=== PATIENT | male | born 1965 | race Two or more races ===

== ENCOUNTER 2020-01-25 14:58 | Emergency (ER) | payer MEDICAID, SELFPAY ==
--- NOTE | 2020-01-25 | XR_ITS ---
EXAMINATION: XR SHOULDER, LEFT CLINICAL INFORMATION: Fall, trauma, pain COMPARISON: Left shoulder 07/18/2014 TECHNIQUE: Left shoulder is imaged in 3 views. FINDINGS: There is no fracture or dislocation. The acromioclavicular alignment is normal. There are no visible rotator cuff calcifications. Small focal cortical irregularity mid superior clavicle is stable from prior left shoulder radiographs 2014. IMPRESSION: No fracture or dislocation.
[2020-01-25 16:36] VITALS: BP 137/77; PULSE 79; RESP 16; TEMP 37.1; O2SAT 97; BMI 15.6
--- NOTE | 2020-01-25 17:38 | ED.EXTPRO ---
HPI - Extremity Problem General Chief complaint: Extremity Injury, Upper Stated complaint: SHOULDER PAIN Time Seen by Provider: 01/25/20 17:02 Source: patient Mode of arrival: ambulatory Limitations: no limitations History of Present Illness HPI Narrative: Patient reports he was walking his dog when he was going up the stairs he tripped and fell and to avoid stepping on his dog he landed on his left shoulder since then he is having pain to his left shoulder radiating to his left elbow Complaint: extremity pain Onset (ago): day(s) (1) Pain Consistency: constant Location: left and upper extremity (shoulder) Severity scale (1-10): 10 Quality: aching Radiation: distal Relieving factors: nothing Exacerbating factors: range of motion and palpation Associated symptoms: denies other symptoms Related Data Previous Rx's Medication Instructions Recorded ibuprofen 800 mg PO Q8H PRN #14 tab 01/25/20 oxycodone-acetaminophen [Percocet] 1 tab PO Q6H PRN #14 tab 01/25/20 Allergies Allergy/AdvReac Type Severity Reaction Status Date / Time aspirin [ASA] Allergy Hives Verified 01/25/20 16:44 Review of Systems Review of Systems: Yes all other systems are reviewed and are negative Constitutional: Constitutional: Reports as per HPI Eyes: Eyes: Reports as per HPI ENT: Reports as per HPI Cardiovascular: Cardiovascular: Reports as per HPI, Denies cool extremities, Denies painful fingertips, Denies chest pain, Denies edema, Denies lightheadedness, Denies radiating jaw, neck or arm pain, Denies palpitations and Denies dyspnea Respiratory: Respiratory: Reports as per HPI and Denies dyspnea Gastrointestinal: Gastrointestinal: Reports as per HPI Genitourinary: Genitourinary: Reports as per HPI Musculoskeletal: Musculoskeletal: Reports as per HPI, Denies back pain, Denies atrophy, Denies deformity, Denies joint swelling, Reports limited range of motion (to left shoulder due to pain ), Denies loss of height, Denies muscle weakness, Denies numbness, Denies radiating pain into limb, Denies stiffness and Denies tingling Integumentary/Breasts: Skin/Breast: Reports as per HPI Neurologic: Reports as per HPI, Denies numbness and Denies tingling Psychiatric: Psychiatric: Reports as per HPI Endocrine: Endocrine: Reports as per HPI and Denies palpitations Allergic/Immunologic: Allergic/Immunologic: Reports as per HPI [facility] Past Medical History Medical History Asthma Diverticulitis Social History Social History Smoking Status: Current every day smoker Use of substances other than those prescribed or required for medical reasons: No Advance Directives: No Advance Directives Information Provided: No Physical Exam Vital Signs and I&O and Narrative: Vital Signs and I&O: Vital Signs Temp 98.7 F 01/25/20 16:36 Pulse 79 01/25/20 16:36 Resp 16 01/25/20 16:36 BP 137/77 01/25/20 16:36 Pulse Ox 97 01/25/20 16:36 Intake & Output 01/24/20 01/25/20 01/25/20 18:59 06:59 18:59 Weight 49.442 kg Body Mass Index 15.6 Const: General: cooperative, healthy appearing, comfortable, no acute distress, well developed, alert, awake and Physically active Nutritional Appearance: average body habitus Orientation/consciousness: patient oriented x3 Limitations: no limitations HENMT: Head: Yes normal to inspection, Yes No palpable skull fracture present, Yes normocephalic and Yes atraumatic Ears: hearing grossly normal bilaterally General nose exam: Normal external nose present Face and sinus: Yes normal facial exam Mouth: Normal oral and palatal mucosa present and moist mucous membranes Eyes: General: appearance normal, both eyes and all related structures Visual Lane: normal visual lane by confrontation Alignment and Position: alignment normal Periorbital: periorbital findings normal Eyelids: Yes eyelids normal Pupils: Equal, round and reactive pupils present EOM: EOMs intact bilaterally Neck: Neck: Yes normal visual inspection, Yes full ROM, Yes no lymphadenopathy, Yes no meningeal signs, Yes trachea midline and Yes supple Chest: Chest palpation & inspection: normal inspection of the chest Resp: Effort & Inspection: normal respiratory effort and able to speak in complete sentences Auscultation: clear to auscultation bilaterally Cardio: Rate: regular rate Rhythm: regular rhythm Heart sounds: S1 normal heart sound present and S2 normal heart sound present Peripheral pulses: Peripheral pulses 2+ throughout Back/Spine/Pelvis: Cervical Spine: cervical ROM normal Thoracic/Lumbar Spine: thoraco-lumbar ROM normal Skin: General skin exam: no rashes or lesions noted, elasticity normal, turgor normal, no ecchymosis and no excoriation(s) Lesions: no lesions Rashes: no rashes Trauma: no lacerations or abrasions Wounds: no wounds Neuro: General: patient oriented x3, gait normal, moves all extremities, no meningeal signs, no focal motor deficits and CN's II-XI intact bilaterally Cranial nerves: Yes Equal, round and reactive pupils present Extrem: General: Yes normal to inspection Right upper extremity: normal to inspection and full ROM Left upper extremity: shoulder/upper arm Details: inspection abnormal, tenderness, axillary nerve sensory function normal and abnormal ROM Details: held in an abnormal fashion Details: in flexion and in internal rotation, pain with active ROM Details: in ADduction, in ABduction, in extension, in flexion, in internal rotation and external rotation- and pain with passive ROM Details: in ADduction, in ABduction, in extension, in flexion, in internal rotation and external rotation- Right lower extremity: normal to inspection and full ROM Left lower extremity: normal to inspection and full ROM Psych: Appearance: grossly normal Mental Status: mental status grossly normal Speech and movement: Normal speech and movement present Affect: normal affect Attitude: cooperative MDM - Extremity (Nontraumatic) Imaging Data left shoulder xray: Attestation: I personally reviewed and interpreted this imaging study as follows: Radiologist's impression: [address] [address] XRay Report Signed Patient: Hernan Cote#: [id number] : 1965Acct:[id number] Age/Sex: 54 / MADM Date: 01/25/20 Loc: HO.ED Attending Dr: Ordering Physician: Generic ED Physician Date of Service: 01/25/20 Procedure(s): XR shoulder LT min 2V Accession Number(s): [id number] cc: ~ EXAMINATION: XR SHOULDER, LEFT CLINICAL INFORMATION: Fall, trauma, pain COMPARISON: Left shoulder 07/18/2014 TECHNIQUE: Left shoulder is imaged in 3 views. FINDINGS: There is no fracture or dislocation. The acromioclavicular alignment is normal. There are no visible rotator cuff calcifications. Small focal cortical irregularity mid superior clavicle is stable from prior left shoulder radiographs 2014. IMPRESSION: No fracture or dislocation. Discharge Plan Discharge Clinical Impression: Fall (on) (from) other stairs and steps, initial encounter Sprain of left shoulder Qualifiers: Encounter type: initial encounter Shoulder sprain type: coracohumeral ligament Qualified Code(s): S43.412A - Sprain of left coracohumeral (ligament), initial encounter Patient Disposition: Home, Self-Care Instructions: Shoulder Sprain (ED), Shoulder Immobilizer (ED) Prescriptions: New oxycodone-acetaminophen [Percocet] 5-325 mg tablet 1 tab PO Q6H PRN (Reason: pain) Qty: 14 RF: 0 ibuprofen 800 mg tablet 800 mg PO Q8H PRN (Reason: pain) Qty: 14 RF: 0 Referrals: Yany Fitzgerald MD [Physician] - 2 weeks Stand Alone Forms: Work/School Release
== END 2020-01-25 18:30 | disposition home or self-care (01) ==
PROVIDERS: Emergency Provider Emergency Medicine
DX: S43.412A Sprain of left coracohumeral (ligament), initial encounter (principal); W10.8XXA Fall (on) (from) other stairs and steps, initial encounter; Y93.9 Activity, unspecified; Y92.019 Unspecified place in single-family (private) house as the place of occurrence of the external cause; Y99.9 Unspecified external cause status
CPT/HCPCS: 73030; 99283; 99284

== ENCOUNTER 2020-03-03 12:55 | Emergency (ER) | payer MEDICAID, SELFPAY ==
[2020-03-03 13:19] VITALS: PULSE 92; RESP 17; TEMP 37; O2SAT 95; BMI 27.2
--- NOTE | 2020-03-03 13:33 | ED.EXTPRO ---
HPI - Extremity Problem General Chief complaint: Extremity Injury, Upper Stated complaint: R ARM PAIN Time Seen by Provider: 03/03/20 13:31 Source: patient Mode of arrival: ambulatory History of Present Illness HPI Narrative: 54-year-old male with a past medical history of asthma, diverticulitis complaining of acute on chronic left shoulder pain S/P injury about a month ago. Reports caught himself while falling down stairs 1 month ago and arm was hyperextended, was seen in the ED afterwards, x-rays were normal, reports continued pain, worse with movement and at night. Reports associated tingling in LUE. Denies new or more recent injury, fever MD Complaint: extremity pain Related Data Previous Rx's Medication Instructions Recorded ibuprofen 800 mg PO Q8H PRN #14 tab 01/25/20 oxycodone-acetaminophen [Percocet] 1 tab PO Q6H PRN #14 tab 01/25/20 oxycodone-acetaminophen [Percocet] 1 tab PO Q6H PRN #14 tab 01/25/20 Allergies Allergy/AdvReac Type Severity Reaction Status Date / Time aspirin [ASA] Allergy Hives Verified 01/25/20 16:44 Review of Systems Review of Systems: Constitutional: No Weight loss, No Fever, No Chills Musculoskeletal:+joint pain, No Myalgias, No Joint Swelling Skin: No Skin Lesions, No rash Neuro: No Weakness,+tingling, No Paresthesias Yes all other systems are reviewed and are negative PMFSH Past Medical History Attestation statement: The following information was validated with the patient. Medical History Asthma Diverticulitis Social History Social History Smoking Status: Current every day smoker Advance Directives: No Advance Directives Information Provided: Yes Physical Exam Vital Signs: Vital Signs: Last Vital Signs Temp 98.6 F 03/03/20 13:19 Pulse 92 03/03/20 13:19 Resp 17 03/03/20 13:19 Pulse Ox 95 03/03/20 13:19 Body Mass Index 27.2 Const: General: cooperative and healthy appearing Orientation/consciousness: patient oriented x3 Limitations: no limitations HENMT: Head: Yes normal to inspection Ears: hearing grossly normal bilaterally General nose exam: Normal external nose present Face and sinus: Yes normal facial exam Eyes: General: appearance normal, both eyes and all related structures EOM: EOMs intact bilaterally Neck: Neck: Yes normal visual inspection Resp: Effort & Inspection: normal respiratory effort Cardio: Peripheral pulses: radial pulses present Skin: Rashes: no rashes Wounds: no wounds Neuro: Other: Left shoulder with +ttp > anteriorly and deltoid. No appreciable deformity. Limited ROM due to pain. NV intact General: patient oriented x3 Gait exam (Neuro): Normal gait present Extrem: General: Yes normal to inspection MDM - Extremity (Nontraumatic) MDM Narrative Medical decision making narrative: Likely rotator cuff, tendon or ligamental injury x-ray in 01/24 without fracture or dislocation Discharge Plan Discharge Clinical Impression: Left shoulder pain Qualifiers: Chronicity: unspecified Qualified Code(s): M25.512 - Pain in left shoulder Patient Disposition: Home, Self-Care Instructions: Shoulder Sprain (ED) Additional Instructions: Your pain is likely a rotator cuff, a ligament or tendon injury YOU NEED TO FOLLOW-UP WITH EDUCATIONAL ADMINISTRATION TEACHER YOU NEED AN MRI TO EVALUATE PROPERLY Flexeril is a muscle relaxer, take at night as it makes you drowsy, do not drive, drink alcohol, or operate machinery while taking it Naproxen as an anti-inflammatory / pain medication, take with food Lidoderm patches are numbing patches, apply to painful area In addition take Tylenol at home If symptoms persist or worsen, pain becomes unbearable, you developed urinary retention or incontinence, or weakness return to the ED Prescriptions: No Action oxycodone-acetaminophen [Percocet] 5-325 mg tablet 1 tab PO Q6H PRN (Reason: pain) Qty: 14 RF: 0 ibuprofen 800 mg tablet 800 mg PO Q8H PRN (Reason: pain) Qty: 14 RF: 0 oxycodone-acetaminophen [Percocet] 5-325 mg tablet 1 tab PO Q6H PRN (Reason: pain) Qty: 14 RF: 0 Referrals: Wendy Escobedo PA-C [Physician Upholstery Cleaner] - 1 week
== END 2020-03-03 13:51 | disposition home or self-care (01) ==
PROVIDERS: Emergency Provider Emergency Medicine
DX: M79.602 Pain in left arm (principal); M79.601 Pain in right arm; M25.512 Pain in left shoulder; J45.909 Unspecified asthma, uncomplicated; Z71.6 Tobacco abuse counseling; Z79.899 Other long term (current) drug therapy
CPT/HCPCS: 99283

== ENCOUNTER 2023-01-18 09:22 | Emergency (ER) | payer MEDICAID, SELFPAY ==
[2023-01-18 09:27] VITALS: BP 114/73; PULSE 67; RESP 18; TEMP 36.7; O2SAT 99; BMI 25.8
--- NOTE | 2023-01-18 10:21 | ED_ITS ---
HPI - General Adult General Chief complaint: Wound/Laceration Stated complaint: r ring finger inj Time Seen by Provider: 01/18/23 10:00 Source: patient Mode of arrival: ambulatory Limitations: no limitations History of Present Illness HPI narrative: Patient is a 57-year-old [id number] male presenting to the emergency department with complaint of redness, pain, and swelling to the distal tip of his right 4th finger for the past 3 weeks. States that he does bite his nails. Reports some purulent drainage. Denies fevers. Denies any streaking of erythema up finger. complaint: paronychia Onset (ago): week(s) Location: right and upper extremity Radiation: non-radiation Severity: moderate Quality: aching Pain Consistency: constant Relieving factors: rest Exacerbating factors: movement Associated symptoms: denies other symptoms Treatments prior to arrival: none Related Data Previous Rx's Medication Instructions Recorded ibuprofen 800 mg tablet 800 mg PO Q8H PRN pain #14 tabs 01/25/20 oxycodone-acetaminophen 5 mg-325 1 tab PO Q6H PRN pain #14 tabs 01/24/20 mg tablet (Percocet) oxycodone-acetaminophen 5 mg-325 1 tab PO Q6H PRN pain #14 tabs 01/24/20 mg tablet (Percocet) acetaminophen 500 mg tablet 500 mg PO Q6H PRN pain or fever 03/03/20 (Tylenol Extra Strength) #20 tabs cyclobenzaprine 5 mg tablet 5 mg PO Q8H PRN pain (scale score 03/03/20 7-10) 5 days #14 tabs lidocaine 5 % topical patch 1 patch topical DAILY PRN pain #30 03/03/20 (Lidoderm) ea sulfamethoxazole 800 1 tab PO Q12H #14 tabs 01/18/23 mg-trimethoprim 160 mg tablet (Bactrim DS) Allergies Allergy/AdvReac Type Severity Reaction Status Date / Time aspirin [ASA] Allergy Hives Verified 01/25/20 16:44 Review of Systems Review of Systems: As per HPI. Yes all other systems are reviewed and are negative Constitutional: Constitutional: Reports as per HPI PMF Past Medical History Medical History Asthma Diverticulitis Social History Social History Advance Directives: No Advance Directives Information Provided: Yes Physical Exam ED Vital Signs: Vital Signs - 24 hr 01/18/23 09:27 Temperature 98.0 F Pulse Rate 67 Respiratory Rate 18 Blood Pressure 114/73 Pulse Oximetry 99 Oxygen Delivery Method Room Air BMI result Body Mass Index 25.8 Vital signs have been reviewed and appear to be correct. Blood pressure normal. Heart rate normal. Respiratory rate normal. Temperature normal. Oxygen saturation normal. Const General: cooperative, healthy appearing and no acute distress Orientation/consciousness: oriented to person, oriented to place, oriented to time and patient oriented x3 Limitations: no limitations HENMT Head: Yes normocephalic and Yes atraumatic Ears: external ears normal General nose exam: Normal external nose present Face and sinus: Yes face symmetric Mouth: oropharynx normal and moist mucous membranes Throat: Yes uvula midline Eyes Pupils: Equal, round and reactive pupils present Neck Neck: Yes normal visual inspection and Yes supple Resp Effort & Inspection: normal respiratory effort and able to speak in complete sentences Auscultation: clear to auscultation bilaterally Cardio Rate: regular rate Rhythm: regular rhythm Heart sounds: S1 normal heart sound present and S2 normal heart sound present GI Palpation (GI): Soft to palpation and nontender Auscultation: normoactive bowel sounds General: Yes no CVA tenderness Back/Spine/Pelvis Back: no CVA tenderness Skin General skin exam: elasticity normal and turgor normal Neuro General: oriented to person, oriented to place, oriented to time, patient oriented x3, moves all extremities, no focal motor deficits and CN's II-XI intact bilaterally Cranial nerves: Yes Equal, round and reactive pupils present Cognition (Neuro): normal cognition Extrem General: Yes full ROM, Yes no pedal edema and Yes no calf tenderness Right upper extremity: Extremity exam: right hand Details: neuromotor exam normal, neurosensory exam normal, tenderness Location: of the 4th digit Location: at the distal phalanx, normal ROM of fingers and swelling Location: of the 4th digit Location: at the distal phalanx (abscess) Psych Mental Status: mental status grossly normal Affect: normal affect Thought process: Normal thought process present Medications Administered Discontinued Medications Generic Name Dose Route Start Last Admin Trade Name Freq PRN Reason Stop Dose Admin Lidocaine HCl 5 ml 01/18/23 10:20 01/18/23 10:48 Lidocaine Hcl 1 % Mpf 5 Ml Vial INFILTRATI 01/18/23 10:21 Not Given ONCE ONE Medical Decision Making Medical Decision Making [facility] Narrative: Patient is a 57-year-old [id number] male presenting to the emergency department with complaint of redness, pain, and swelling to the distal tip of his right 4th finger for the past 3 weeks. On exam patient is awake, A+Ox3, VS WNL, afebrile, normal neurological exam without focal deficits, physical exam findings as above. Given reported symptoms and physical exam findings, initial differential includes paronychia, paronychia with abscess. No evidence of felon on physical exam. Do not suspect onychomycosis, herpetic david, acrodermatitis continua of [place]. Abscess drained with #18 Gauge needle with small amount of purulent drainage, patient declined lidocaine for the procedure. Discussed with patient that he should soak his finger in warm water with Epsom salt several times daily. Will prescribe course of Bactrim. 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 Advised patient to removed gloves to allow finger to be open to air as much as possible, but should wear gloves while making any food products. Return precautions discussed. Patient verbalized understanding of and agreement with plan. Differential Diagnosis Differential Diagnoses: The differential diagnosis associated with the presentation includes As per [facility] External Record Review External record reviewed: Inpatient record, Office record and Outpatient record Prescription Management I considered prescription management with: Antibiotic Discharge Plan Discharge Clinical Impression: Paronychia of finger of right hand Patient Disposition: Home, Self-Care Instructions: Paronychia (ED) Additional Instructions: You are being prescribed an antibiotic, please complete the full course as prescribed. Soak your finger in warm water with Epsom salt several times daily. Keep finger open to air as much as possible, but cover with a Band-Aid if there is a risk for contamination. Assess your finger daily for signs of worsening infection such as increased swelling, increased redness, redness streaking up your finger, increased pain, fever 100.4? F or greater and return if any of these occur. Please follow up with your primary care provider. Prescriptions: New sulfamethoxazole-trimethoprim [Bactrim DS] 800-160 mg tablet 1 tab PO Q12H Qty: 14 0RF No Action oxycodone-acetaminophen [Percocet] 5-325 mg tablet 1 tab PO Q6H PRN (Reason: pain) Qty: 14 0RF ibuprofen 800 mg tablet 800 mg PO Q8H PRN (Reason: pain) Qty: 14 0RF oxycodone-acetaminophen [Percocet] 5-325 mg tablet 1 tab PO Q6H PRN (Reason: pain) Qty: 14 0RF acetaminophen [Tylenol Extra Strength] 500 mg tablet 500 mg PO Q6H PRN (Reason: pain or fever) Qty: 20 0RF lidocaine [Lidoderm] 5 % adhesive patch,medicated 1 patch topical DAILY MDD remove after 12 hours PRN (Reason: pain) Qty: 30 0RF Rx Instructions: leave on most painful area for up to 12 hrs cyclobenzaprine 5 mg tablet 5 mg PO Q8H PRN (Reason: pain (scale score 7-10)) 5 Days Qty: 14 0RF Stand Alone Forms: Work/School Release
== END 2023-01-18 10:56 | disposition home or self-care (01) ==
PROVIDERS: Emergency Provider Emergency Medicine
DX: L03.011 Cellulitis of right finger (principal); Z79.899 Other long term (current) drug therapy
CPT/HCPCS: 99282; 99283

== ENCOUNTER 2023-11-14 00:54 | Emergency (ER) | payer SELFPAY ==
--- NOTE | ~2023-11-14 | XR_ITS ---
EXAMINATION: XR ANKLE, LEFT CLINICAL INFORMATION: Fall. Pain. COMPARISON: None available. TECHNIQUE: AP, lateral, and mortise views of the left ankle. FINDINGS: No fracture. Alignment is anatomic. No erosions. Joint spaces are maintained. Soft tissues are normal. XR/XR ankle LT 2V IMPRESSION: Significant abnormality identified.
--- NOTE | ~2023-11-14 | XR_ITS ---
EXAMINATION: XR FOOT, LEFT CLINICAL INFORMATION: Fall. Pain. COMPARISON: None available. TECHNIQUE: AP, lateral, and oblique views of the left foot. FINDINGS: The bones and soft tissues are normal. No fracture. Alignment is anatomic. Joint spaces are maintained. XR/XR foot LT 2V IMPRESSION: No significant abnormality identified.
[2023-11-14 01:03] VITALS: BP 122/73; PULSE 98; RESP 18; TEMP 36.6; O2SAT 96; BMI 25.9
--- NOTE | 2023-11-14 01:39 | ED_ITS ---
HPI - Extremity Injury (Lower) General Chief Complaint: Extremity Injury, Lower Stated Complaint: lt ankle pain x 2 weeks Time Seen by Provider: 11/14/23 01:16 Source: patient Mode of arrival: ambulatory Limitations: no limitations History of Present Illness ED Provider: BC JOHNSON Narrative: 58 yo male with PMH of asthma and diverticulitis who reports 3 weeks ago injured L foot and ankle while walking at night it seemed to be getting better did not seek care but more painful and swollen 3 days ago no new trauma or rash. complaint: ankle injury and foot injury Onset (ago): week(s) (3) Injury: Left: ankle and foot Type of Injury: blunt Place: street/outdoors Severity: moderate Relieving factors: immobilization Exacerbating factors: weight bearing and palpation Context: walking Associated symptoms: swelling Other symptoms: none Related Data Previous Rx's ?Medication ?Instructions ?Recorded ibuprofen 800 mg tablet 800 mg PO Q8H PRN pain #14 tabs 01/25/20 oxycodone-acetaminophen 5 mg-325 1 tab PO Q6H PRN pain #14 tabs 01/24/20 mg tablet (Percocet) oxycodone-acetaminophen 5 mg-325 1 tab PO Q6H PRN pain #14 tabs 10/02/20 mg tablet (Percocet) acetaminophen 500 mg tablet 500 mg PO Q6H PRN pain or fever 03/03/20 (Tylenol Extra Strength) #20 tabs cyclobenzaprine 5 mg tablet 5 mg PO Q8H PRN pain (scale score 03/03/20 7-10) 5 days #14 tabs lidocaine 5 % topical patch 1 patch topical DAILY PRN pain #30 03/03/20 (Lidoderm) ea sulfamethoxazole 800 1 tab PO Q12H #14 tabs 01/18/23 mg-trimethoprim 160 mg tablet (Bactrim DS) Allergies Allergy/AdvReac Type Severity Reaction Status Date / Time aspirin [ASA] Allergy Hives Verified 11/14/23 01:03 Review of Systems Review of Systems: Constitutional : No Fever, No Chills ENT/Mouth : No Ear Pain, No Hoarseness, No sore throat Cardiovascular : No Chest Pain, No SOB Respiratory : No Cough, No Dyspnea Gastrointestinal : No Nausea, No Vomiting, No Diarrhea, No abdominal Pain Musculoskeletal : positive joint pain, No Myalgias, pos Joint Swelling Skin : No Skin lacerations, No rash Neuro : No Weakness, No Numbness, No Loss of Consciousness, No Dizziness, No Headache All other systems reviewed and are negative [facility] Past Medical History Attestation statement: The following information was validated with the patient. Source: old records reviewed Medical History Asthma Diverticulitis Social History Social History Advance Directives: No Advance Directives Information Provided: Yes Physical Exam Vital Signs: Vital Signs: Last Vital Signs Temp 97.8 F 11/14/23 01:03 Pulse 98 11/14/23 01:03 Resp 18 11/14/23 01:03 BP 122/73 11/14/23 01:03 Pulse Ox 96 11/14/23 01:03 O2 Del Method Room Air 11/14/23 01:03 BMI result Body Mass Index 25.9 Appearance: Alert. Oriented X3. No acute distress. Eyes: Pupils equal, round and reactive to light. ENT: Pharynx normal. Neck: Normal inspection. Neck supple. CVS: Normal heart rate and rhythm. Pulses normal. Respiratory: No respiratory distress. Breath sounds normal. Abdomen: Soft and nontender. Skin: Skin warm and dry. Normal skin color. Normal skin turgor. Extremities: No lower extremity edema. R ankle and foot - mild swelling around lateral malleolus, 2+ DP/PT pulse SILT inact, achilles testing intact, ttp mild on 1st MTP joint no redness or warmth Neuro: Oriented X 3. No motor deficit. No sensory deficit. Course Course Course Narrative: significant delay in reads will call for any abnormal results Medical Decision Making Medical Decision Making MDM Narrative: 58 yo male with PMH of asthma and diverticulitis here with c/o L foot and ankle pain that has worsened and not improved x 2 weeks - at this time no signs of infect he is NV intact will obtain xrays for fracture. Differential Diagnosis Differential Diagnoses: The differential diagnosis associated with the presentation includes sprain, strain, contusion, fracture Independent Interpretation I performed an independent interpretation of an: Plain X-Ray (no fracture) Radiology Impression Discussion of test interpretation with radiology: I have reviewed the radiologist's reading. External Record Review External record reviewed: Inpatient record Discharge Plan Discharge Clinical Impression: Ankle sprain and strain, Foot sprain Patient Disposition: Home, Self-Care Instructions: Ankle Sprain (ED), Foot Sprain (ED) Additional Instructions: elevate and rest for the next two days to see if this improves if not better follow up with your doctor or orthopedics prelim read no acute fracture will call you if final read is abnormal Prescriptions: No Action oxycodone-acetaminophen [Percocet] 5-325 mg tablet 1 tab PO Q6H PRN (Reason: pain) Qty: 14 0RF ibuprofen 800 mg tablet 800 mg PO Q8H PRN (Reason: pain) Qty: 14 0RF oxycodone-acetaminophen [Percocet] 5-325 mg tablet 1 tab PO Q6H PRN (Reason: pain) Qty: 14 0RF acetaminophen [Tylenol Extra Strength] 500 mg tablet 500 mg PO Q6H PRN (Reason: pain or fever) Qty: 20 0RF lidocaine [Lidoderm] 5 % adhesive patch,medicated 1 patch topical DAILY MDD remove after 12 hours PRN (Reason: pain) Qty: 30 0RF Rx Instructions: leave on most painful area for up to 12 hrs cyclobenzaprine 5 mg tablet 5 mg PO Q8H PRN (Reason: pain (scale score 7-10)) 5 Days Qty: 14 0RF sulfamethoxazole-trimethoprim [Bactrim DS] 800-160 mg tablet 1 tab PO Q12H Qty: 14 0RF Stand Alone Forms: Work/School Release Print Language: American
--- NOTE | 2023-11-14 02:55 | MHC.EDTECH ---
pt left foot and ankle wrapped in tiana wrap per med. pt tolerated well
[2023-11-14 02:57] VITALS: BP 118/71; PULSE 80; RESP 17; O2SAT 98
[2023-11-14 03:16] VITALS: BP 118/71; PULSE 80; RESP 17; TEMP 36.8; O2SAT 98
== END 2023-11-14 03:18 | disposition home or self-care (01) ==
PROVIDERS: Emergency Provider Emergency Medicine
DX: S93.402A Sprain of unspecified ligament of left ankle, initial encounter (principal); M79.672 Pain in left foot; Y93.01 Activity, walking, marching and hiking; Y93.89 Activity, other specified; Y92.89 Other specified places as the place of occurrence of the external cause; Y99.8 Other external cause status
CPT/HCPCS: 73600; 73620; 99283; 99284